=== PATIENT | female | born 1955 ===

== ENCOUNTER 2018-08-19 09:09 | Emergency (ER) | payer OTHER ==
[2018-08-19 09:14] VITALS: BP 146/86; PULSE 93; RESP 18; TEMP 97.9; O2SAT 97; BMI 37.5
--- NOTE | 2018-08-19 09:31 | ED PDOC ---
HPI: Back Time Seen by Provider: 08/19/18 09:22 Chief Complaint (Nursing): Back Pain Additional Complaint(s): 63 yo female patient with PMH of Prediabetes and HLD present today c/o low back pain L sided, patient is s/p accidental fall past Saturday, she reports having a nap on her sofa and fell after she turn over. She endorses fell on her L side hitting her back and L leg, denies hit her head or loc. She reports she was able to walk w/o difficulty after fall. She denies tingling, weakness, numbness on LE, dizziness, CP or abdominal pain, no RUSSELL, diarrhea or constipation. PMD: Dr Pittman in [place] Past Medical History Vital Signs: Last Vital Signs Temp 97.9 F 08/19/18 09:13 Pulse 93 H 08/19/18 09:13 Resp 18 08/19/18 09:13 BP 146/86 08/19/18 09:13 Pulse Ox 97 08/19/18 09:13 JEY Report Viewed: Yes - Medical History PMH: Diabetes, Hyperlipidemia - Family History Family History: States: Unknown Family Hx - Home Medications Home Medications: Ambulatory Orders Medication Instructions Recorded Ibuprofen [Motrin] 600 mg PO TID 7 Days tab 08/19/18 Lidocaine 5% [Lidoderm] 1 ea TD DAILY PRN #5 patch 08/19/18 - Allergies Allergies/Adverse Reactions: Allergies Allergy/AdvReac Type Severity Reaction Status Date / Time No Known Allergies Allergy Verified 08/19/18 09:28 Review of Systems ROS Statement: Except As Marked, All Systems Reviewed And Found Negative Physical Exam - Reviewed Nursing Documentation Reviewed: Yes Vital Signs Reviewed: Yes - Physical Exam Appears: Positive for: No Acute Distress Head Exam: Positive for: ATRAUMATIC, NORMAL INSPECTION Skin: Positive for: Normal Color (There is bruise on L flank ~ 4-5 cm lenght, no other bruises noted), Warm, Dry Eye Exam: Positive for: EOMI, PERRL. Negative for: Nystagmus Neck: Positive for: Painless ROM, Supple Cardiovascular/Chest: Positive for: Regular Rate, Rhythm. Negative for: Murmur, Tachycardia Respiratory: Positive for: Normal Breath Sounds. Negative for: Rales, Stridor, Wheezing Gastrointestinal/Abdominal: Positive for: Bowel Sounds, Soft. Negative for: Tenderness, Distended Extremity: Positive for: Normal ROM. 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 - ECG O2 Sat by Pulse Oximetry: 97 Medical Decision Making Medical Decision Making: DDx includes: Lumbar sprain, Plan: -- Lidoderm patch one -- Tylenol PO once -- L spine Xray -- reeval 1045: patient still with moderate pain though better, LS Xray negative for fractures Will discharge pt Disposition - Clinical Impression Clinical Impression: Back injury - Patient ED Disposition Is Patient to be Admitted: No Counseled Patient/Family Regarding: Studies Performed, Diagnosis, Need For Followup - Disposition Referrals: Gretel Pittman MD [Primary Care Provider] - 08/20/18 Disposition: Routine/Home Disposition Time: 10:48 Condition: STABLE Additional Instructions: Return if not better in 3 days. Prescriptions: Ibuprofen [Motrin] 600 mg PO TID 7 Days tab Lidocaine 5% [Lidoderm] 1 ea TD DAILY PRN #5 patch PRN Reason: Pain, Moderate (4-7) Instructions: Low Back Pain in Adults Forms: [employer] (Indonesian) Print Language: HONDURAN
[2018-08-19] MEDS ORDERED: Lidocaine 5% Patch TD ONE (09:45)
[2018-08-19] MEDS ORDERED: Lidocaine 5% Patch TD SCH (09:45)
--- NOTE | 2018-08-19 12:22 | RAD ---
Date of service: 08/19/2018 PROCEDURE: Radiographs of the Lumbar Spine. HISTORY: low back pain, s/p fall COMPARISON: No prior. TECHNIQUE: 3 views obtained. FINDINGS: BONES: There is normal alignment of the lumbar vertebral bodies. There is normal lumbar lordosis. There is no acute fracture, spondylolysis or spondylolisthesis. There is diffuse bone demineralization. DISC SPACES: There is multilevel degenerative disc disease with anterior osteophytes, reduced disc heights and multilevel facet arthropathy, worse at L5-S1. OTHER FINDINGS: There are no pathologic soft tissue calcifications. Both sacroiliac joints are normal. IMPRESSION: No acute fracture or spondylolysis. Multilevel degenerative disc disease, worse at L5-S1.
== END 2018-08-19 11:50 | disposition home or self-care (01) ==
LOC: SUPCPDRO 09:09 → H.ER 09:09
DX: S39.92XA Unspecified injury of lower back, initial encounter (principal); W19.XXXA Unspecified fall, initial encounter; Y92.89 Other specified places as the place of occurrence of the external cause; E11.9 Type 2 diabetes mellitus without complications; E78.5 Hyperlipidemia, unspecified; M51.37 Other intervertebral disc degeneration, lumbosacral region